=== PATIENT | female | born 1970 | race Two or more races ===

== ENCOUNTER 2024-02-28 17:51 | Inpatient (IN) | payer MEDICAID, OTHER ==
[~2024-02-28] VITALS: Ht 149.9 cm; Wt 83.6 kg
[2024-02-28 19:11] LABS: Urine Bacteria None Seen /hpf (None Seen)
[2024-02-28 19:18] LABS: Urine Blood TRACE /uL (Negative); Urine Clarity Clear (Clear); Urine Color Colorless (Yellow); Urine Protein, UAD Negative (Negative); Urine Urobilinogen Normal (Negative); Urine WBC 7 /hpf (0 - 5); Urine pH 5.5 (5.0-9.0)
[2024-02-28 22:09] LABS: Basophils # (auto) 0 10 ^3/uL (0-0.2); Basophils % (auto) 0.8 % (0.0-2.0); Eosinophils # (auto) 0.3 10 ^3/uL (0-0.8); Eosinophils % (auto) 4.8 % (0.0-7.0); Hematocrit 40.4 % (36.0-46.0); Hemoglobin 13.8 g/dL (12.2-16.2); Lymphocytes # (auto) 1.7 10 ^3/uL (0.4-5.4); Lymphocytes % (auto) 30.2 % (10.0-50.0); Mean Corpuscular Hemoglobin 29.7 pg (28.0-32.0); Mean Corpuscular Hgb Conc. 34.2 g/dL (32.0-36.0); Mean Corpuscular Volume 86.8 fL (80.0-100.0); Monocytes # (auto) 0.4 10 ^3/uL (0-1.3); Monocytes % (auto) 7.8 % (0.0-12.0); Neutrophils # (auto) 3.1 10 ^3/uL (1.6-8.6); Neutrophils % (auto) 56.4 % (37.0-80.0); Nucleated Red Blood Cells % 0.1 %; Red Blood Cells 4.65 10^6/uL (4.0-5.20); Red Cell Distribution Width 14.5 % (11.8-14.3); White Blood Cell 5.5 10^3/uL (4.4-10.8)
[2024-02-28 22:27] LABS: Alanine Aminotransferase 17 U/L (7-40); Albumin 4.4 g/dL (3.2-4.8); Alkaline Phosphatase 151 U/L (46-116); Anion Gap 9 (5-15); Aspartate Aminotransferase 15 U/L (13-40); BUN/Creatinine Ratio 19.8 (10.0-20.0); Bilirubin, Total 0.4 mg/dL (0.2-1.0); Blood Urea Nitrogen 17 mg/dL (9-23); Calcium 9.3 mg/dL (8.7-10.4); Carbon Dioxide 27 mmol/L (20-30); Chloride 104 mmol/L (98-107); Glucose 95 mg/dL (74-106); Lipase 50 U/L (12-53); Potassium 3.7 mmol/L (3.5-5.1); Sodium 140 mmol/L (136-145); Total Protein 7.6 g/dL (5.7-8.2)
[2024-02-28] MEDS: SODIUM CHLORIDE 0.9% 1,000 ML IV ONE (23:31)
[2024-02-28] MEDS: MORPHINE SULFATE 4 MG/ML SYR/VIAL IV ONE (23:43)
[2024-02-28] MEDS: FAMOTIDINE (10MG/ML) 2ML VL IV ONE (23:44)
[2024-02-28] MEDS: ONDANSETRON HCL 4 MG/2 ML VIAL IV ONE (23:44)
[2024-02-28] MEDS: IOHEXOL 350 MG/ML 100ML IJ ONE (23:47)
[2024-02-29 02:15] VITALS: PULSE 80; RESP 20; O2SAT 96
[2024-02-29] MEDS ORDERED: ONDANSETRON HCL 4 MG/2 ML VIAL IV PRN (02:30)
[2024-02-29] MEDS ORDERED: ACETAMINOPHEN 325 MG TAB PO PRN (02:30)
[2024-02-29] MEDS ORDERED: NITROGLYCERIN 0.4 MG SL TAB SL PRN (02:30)
[2024-02-29] MEDS: SODIUM CHLORIDE 0.9% 1,000 ML IV SCH (02:58)
[2024-02-29] MEDS: KETOROLAC TROMETH 30 MG/ML 1ML VIAL IV ONE (03:15)
[2024-02-29] MEDS ORDERED: OMEP20TA PO (05:21)
[2024-02-29] MEDS ORDERED: IBUP-1454 PO (05:21)
[2024-02-29 09:00] VITALS: BP 99/40; PULSE 61; RESP 16; TEMP 97.6; O2SAT 96
[2024-02-29] MEDS: levoFLOXacin 500MG 100 ML IV SCH (10:35)
[2024-02-29] MEDS: ENOXAPARIN SOD 40 MG/0.4 ML SYRINGE SC SCH (10:35)
[2024-02-29] MEDS: PANTOPRAZOLE 40 MG/10 ML VIAL INJ IV SCH (10:36)
[2024-02-29] MEDS: HYDROcodone-ACET 5/325MG TAB PO PRN (11:38)
[2024-02-29 13:00] VITALS: BP 108/60; PULSE 60; RESP 16; TEMP 98; O2SAT 96
[2024-02-29 17:00] VITALS: BP 114/59; PULSE 64; RESP 16; TEMP 98.3; O2SAT 98
[2024-02-29 21:00] VITALS: BP 120/62; PULSE 65; RESP 18; TEMP 97.8; O2SAT 95
[2024-02-29] MEDS ORDERED: DOCUSATE SOD 100 MG CAP PO PRN (22:45)
[2024-02-29] MEDS: DOCUSATE SOD 100 MG CAP PO ONE (23:03)
[2024-02-29] MEDS: MORPHINE SULFATE INJ 2 MG/ml SYRG IV PRN (23:08)
[2024-03-01 01:00] VITALS: BP 123/57; PULSE 54; RESP 18; TEMP 97.8; O2SAT 96
[2024-03-01 05:00] VITALS: BP 108/53; PULSE 73; RESP 20; TEMP 97.7; O2SAT 98
[2024-03-01 09:05] VITALS: BP 131/71; PULSE 64; RESP 18; TEMP 97.8; O2SAT 100
[2024-03-01 12:05] VITALS: BP 110/64; PULSE 67; RESP 18; TEMP 97.8; O2SAT 99
[2024-03-01 15:52] VITALS: BP 124/73; PULSE 64; RESP 18; TEMP 98; O2SAT 96
[2024-03-01] MEDS ORDERED: DICYCLOMINE HCL 10 MG CAP PO PRN (16:30)
[2024-03-01] MEDS: POLYETHYLENE GLYCOL 17 GM PWDR PO ONE (17:20)
[2024-03-01 21:00] VITALS: BP 141/57; PULSE 69; RESP 18; TEMP 98.1; O2SAT 97
[2024-03-01] MEDS: MORPHINE SULFATE INJ 2 MG/ml SYRG IV PRN (23:14)
[2024-03-02 01:00] VITALS: BP 129/67; PULSE 62; RESP 17; TEMP 98; O2SAT 97
[2024-03-02 05:00] VITALS: BP 96/72; PULSE 62; RESP 16; TEMP 97.9; O2SAT 100
[2024-03-02 09:00] VITALS: BP 114/60; PULSE 57; RESP 19; TEMP 97.6; O2SAT 95
[2024-03-02 13:00] VITALS: BP 126/68; PULSE 66; RESP 18; TEMP 98.1; O2SAT 97
[2024-03-02] MEDS ORDERED: POLY335015 PO (13:05)
[2024-03-02] MEDS ORDERED: DICY10CA PO (13:05)
[2024-03-02] MEDS ORDERED: DOCU-265 PO (13:05)
[2024-03-02 17:00] VITALS: BP 117/54; PULSE 53; RESP 20; TEMP 97.5; O2SAT 97
[2024-03-02 17:19] VITALS: BP 126/68; PULSE 66; RESP 18; TEMP 98.1; O2SAT 97
== END 2024-03-02 18:46 | disposition home or self-care (01) | DRG 241 ==
LOC: ER 17:51 → OVERFLOW 02-29 02:30 → CENTRAL 02-29 04:32
PROVIDERS: ADMIT Internal Medicine Pulmonary Disease; ATTEND Internal Medicine
DX: K29.70 Gastritis, unspecified, without bleeding (principal); E66.9 Obesity, unspecified; K57.32 Diverticulitis of large intestine without perforation or abscess without bleeding; K52.9 Noninfective gastroenteritis and colitis, unspecified; K44.9 Diaphragmatic hernia without obstruction or gangrene; K59.00 Constipation, unspecified; N39.0 Urinary tract infection, site not specified; Z71.3 Dietary counseling and surveillance; Z87.11 Personal history of peptic ulcer disease; Z68.32 Body mass index [BMI] 32.0-32.9, adult
CPT/HCPCS: 36415; 74177; 80053; 81001; 82270; 83690; 85025; 87045; 87177; 87205; 87427; 96361; 96374; 96375; G0378; J1885; J1956; J2405; J2470; J3490